=== PATIENT | female | born 1935 | race Caucasian/White ===

== ENCOUNTER → 2018-02-14 | Outpatient (CLI) | payer OTHER ==
[~2018-02-14] MED LIST: ACET325 PO; ALBU90OI INH; ALBU90OI61; ASPI325 PO; ATEN50 PO; ATOR10; ATOR20 PO; Adult Low Dose81 MG PO; CEPH500 PO; CHOL10002 PO; CLOP75; CYAN1000I PO; Citalopram HBr10 MG PO; DIVA125 PO; DOCU100 PO; GAVILAX17 GM PO; GLIP10 PO; LISI5; LORA1 PO; LOSARTAN POTASS50 MG PO; LOSARTAN-HCTZ1 EACH PO; LOSHYD; LOSHYD PO; METO50 PO; METO50ER; NAPR375; NAPR375 PO; PIOG15 PO; Poly-Iron150 MG PO; QUET100 PO; QUETIAPINE FUM150 MG PO; RXHYDACE PO
[2018-02-14 12:09] LABS: Bilirubin, Urine Neg (Neg); Blood, Urine Neg (Neg); Glucose Qualitative, Urine Neg (Neg); Ketones, Urine Neg (Neg); Leukocyte Esterase, Urine 1+ (Neg); Nitrite, Urine Neg (Neg); Protein, Urine Neg (Neg); Specific Gravity, Urine 1.005 (1.003-1.022); Urobilinogen, Urine NORM (Normal)
[2018-02-14 12:24] LABS: Appearance, Urine Clear (Clear); Color, Urine Yellow (P-Yellow)
[2018-02-14 12:28] LABS: Bacteria Rare /hpf; Red Blood Cells, Urine Rare /hpf (0-2)
[2018-02-14 12:29] LABS: Squamous Epithelial Cells Few /hpf (Few); White Blood Cells, Urine 0-2 /hpf (0-5)
== END | disposition home or self-care (01) ==
LOC: LAB SHORT 11:55 → LAB 11:55
DX: N39.0 Urinary tract infection, site not specified (principal)
CPT/HCPCS: 81001; 87086

== ENCOUNTER → 2018-03-05 | Outpatient (CLI) | payer OTHER ==
[2018-03-06 15:31] LABS: Bilirubin, Urine Neg (Neg); Blood, Urine 1+ (Neg); Color, Urine Yellow (P-Yellow); Glucose Qualitative, Urine Neg (Neg); Ketones, Urine Neg (Neg); Leukocyte Esterase, Urine 3+ (Neg); Nitrite, Urine Neg (Neg); Protein, Urine Neg (Neg); Specific Gravity, Urine 1.015 (1.003-1.022); Urobilinogen, Urine NORM (Normal); pH, Urine 6.5 (5.0-8.0)
[2018-03-06 15:50] LABS: Appearance, Urine Hazy (Clear)
[2018-03-06 15:58] LABS: Bacteria Many /hpf; Squamous Epithelial Cells Mod /hpf (Few)
== END | disposition home or self-care (01) ==
LOC: LAB 14:11 → LAB SHORT 14:11
DX: N39.0 Urinary tract infection, site not specified (principal)
CPT/HCPCS: 81001; 87086

== ENCOUNTER 2018-03-14 08:25 | Emergency (ER) | payer OTHER ==
[~2018-03-14] VITALS: Ht 165.1 cm; Wt 68.0 kg
[2018-03-14 10:24] LABS: BASOPHILS ABSOLUTE AUTO 0.05 K/mm3 (0.00-0.23); BASOPHILS PERCENT AUTO 1 % (0-2); EOSINOPHILS ABSOLUTE AUTO 0.16 K/mm3 (0.00-0.68); EOSINOPHILS PERCENT AUTO 2 % (0-6); Hematocrit 37.6 % (33.0-51.0); Hemoglobin 11.9 g/dL (11.5-16.0); IMMATURE GRAN ABSOLUTE AUTO 0.04 K/mm3 (0.00-0.10); IMMATURE GRAN PERCENT AUTO 0 % (0-1); LYMPHOCYTES ABSOLUTE AUTO 1.45 K/mm3 (0.84-5.20); LYMPHOCYTES PERCENT AUTO 15 % (21-46); MONOCYTES ABSOLUTE AUTO 0.52 K/mm3 (0.16-1.47); MONOCYTES PERCENT AUTO 5 % (4-13); Mean Corpuscular HGB 30.6 pg (26.0-34.0); Mean Corpuscular HGB Conc 31.6 g/dL (31.5-36.5); Mean Corpuscular Volume 97 fL (80-100); Mean Platelet Volume 10.2 fL (9.1-12.4); NEUTROPHILS ABSOLUTE AUTO 7.46 K/mm3 (1.96-9.15); NEUTROPHILS PERCENT AUTO 77 % (41-73); Platelet Count 167 K/mm3 (150-400); RDW Coefficient Variation 11.9 % (11.7-14.2); RDW Standard Deviation 41.5 fL (35.1-46.3); Red Blood Cell Count 3.89 M/mm3 (3.80-5.20); White Blood Cell Count 9.68 K/mm3 (4.00-11.30)
[2018-03-14 10:56] LABS: Albumin, Blood 3.4 g/dL (3.4-5.0); Albumin/Globulin Ratio 0.9 (0.8-1.8); Bilirubin, Total 0.3 mg/dL (0.1-1.0); Bun/Creatinine Ratio 31.1 (12.0-20.0); Creatinine, Blood 1.06 mg/dL (0.40-1.00); Globulin, Blood 3.7 g/dL (2.2-4.0); Potassium, Blood 4.5 mmol/L (3.5-5.5); Total Protein, Blood 7.1 g/dL (6.4-8.2)
== END 2018-03-14 12:20 | disposition home or self-care (01) ==
LOC: ER 08:25
PROVIDERS: Emergency Medicine
DX: R56.9 Unspecified convulsions (principal); Z88.1 Allergy status to other antibiotic agents; Z88.5 Allergy status to narcotic agent; Z79.899 Other long term (current) drug therapy; Z79.82 Long term (current) use of aspirin; F03.90 Unspecified dementia, unspecified severity, without behavioral disturbance, psychotic disturbance, mood disturbance, and anxiety; Z86.73 Personal history of transient ischemic attack (TIA), and cerebral infarction without residual deficits; Z87.891 Personal history of nicotine dependence
CPT/HCPCS: 36415; 70450; 71046; 80053; 85025; 93005; 93010; 96360; 96361; 99285-25; J7120

== ENCOUNTER 2018-07-11 16:48 | Inpatient (IN) | payer OTHER ==
[~2018-07-11] VITALS: Ht 160 cm; Wt 56.7 kg
[~2018-07-11 16:48] MED LIST changes: -Adult Low Dose81 MG PO; +BAYER CHEWABLE81 MG PO; -QUET100 PO; +QUET25 PO; +QUETIAPINE FUM100 MG PO; -QUETIAPINE FUM150 MG PO
[2018-07-11 17:37] LABS: Hematocrit 31.3 % (33.0-51.0); Hemoglobin 10.1 g/dL (11.5-16.0); LYMPHOCYTES ABSOLUTE AUTO 1.02 K/mm3 (0.84-5.20); LYMPHOCYTES PERCENT AUTO 8 % (21-46); MONOCYTES ABSOLUTE AUTO 1.23 K/mm3 (0.16-1.47); MONOCYTES PERCENT AUTO 10 % (4-13); Mean Corpuscular HGB 30.1 pg (26.0-34.0); Mean Corpuscular HGB Conc 32.3 g/dL (31.5-36.5); Mean Corpuscular Volume 93 fL (80-100); Mean Platelet Volume 10.8 fL (9.1-12.4); Platelet Count 205 K/mm3 (150-400); RDW Coefficient Variation 12.6 % (11.7-14.2); RDW Standard Deviation 43.2 fL (35.1-46.3); Red Blood Cell Count 3.35 M/mm3 (3.80-5.20); White Blood Cell Count 12.26 K/mm3 (4.00-11.30)
[2018-07-11 17:38] LABS: BASOPHILS ABSOLUTE AUTO 0.02 K/mm3 (0.00-0.23); BASOPHILS PERCENT AUTO 0 % (0-2); EOSINOPHILS ABSOLUTE AUTO 0.01 K/mm3 (0.00-0.68); EOSINOPHILS PERCENT AUTO 0 % (0-6); IMMATURE GRAN ABSOLUTE AUTO 0.19 K/mm3 (0.00-0.10); IMMATURE GRAN PERCENT AUTO 2 % (0-1); NEUTROPHILS ABSOLUTE AUTO 9.79 K/mm3 (1.96-9.15); NEUTROPHILS PERCENT AUTO 80 % (41-73)
[2018-07-11 18:06] LABS: Albumin, Blood 2.7 g/dL (3.4-5.0); Albumin/Globulin Ratio 0.5 (0.8-1.8); Bilirubin, Total 0.4 mg/dL (0.1-1.0); Bun/Creatinine Ratio 38.5 (12.0-20.0); Calcium, Blood 9.2 mg/dL (8.5-10.1); Creatinine, Blood 1.48 mg/dL (0.40-1.00); Globulin, Blood 5.1 g/dL (2.2-4.0); Potassium, Blood 3.9 mmol/L (3.5-5.5); Total Protein, Blood 7.8 g/dL (6.4-8.2)
[2018-07-11 19:55] LABS: Valproic Acid 28.2 ug/mL (50.0-100.0)
[2018-07-11 23:13] LABS: Source, Urine Catheter
[2018-07-11 23:17] LABS: Bilirubin, Urine Neg (Neg); Blood, Urine 1+ (Neg); Glucose Qualitative, Urine Neg (Neg); Ketones, Urine Neg (Neg); Leukocyte Esterase, Urine Neg (Neg); Nitrite, Urine Neg (Neg); Protein, Urine 2+ (Neg); Urobilinogen, Urine NORM (Normal)
[2018-07-11 23:26] LABS: Amorphous Heavy (0-Heavy); Appearance, Urine Cloudy (Clear); Bacteria Few /hpf; Color, Urine Yellow (P-Yellow); Red Blood Cells, Urine Not Seen /hpf (0-2); Squamous Epithelial Cells Rare /hpf (Few); White Blood Cells, Urine Rare /hpf (0-5)
[2018-07-12] MEDS ORDERED: Tussin Dm Clea118 ML PO (00:32)
[2018-07-12] MEDS ORDERED: LORA.5 PO (00:38)
[2018-07-12 01:23] LABS: Adenovirus Not Detected (NOT DETECT); Bordetella pertussis Not Detected (NOT DETECT); Chlamydophila pneumoniae Not Detected (NOT DETECT); Coronavirus 229E Not Detected (NOT DETECT); Coronavirus HKU1 Not Detected (NOT DETECT); Coronavirus NL63 Not Detected (NOT DETECT); Coronavirus OC43 Not Detected (NOT DETECT); Human Metapneumovirus Not Detected (NOT DETECT); Human Rhinovirus/Enterovirus Not Detected (NOT DETECT); Influenza A Not Detected (NOT DETECT); Influenza A/2009-H1 Not Detected (NOT DETECT); Influenza A/H1 Not Detected (NOT DETECT); Influenza A/H3 Not Detected (NOT DETECT); Influenza B Not Detected (NOT DETECT); Mycoplasma pneumoniae Not Detected (NOT DETECT); Parainfluenza Virus 1 Not Detected (NOT DETECT); Parainfluenza Virus 2 Not Detected (NOT DETECT); Parainfluenza Virus 3 Not Detected (NOT DETECT); Parainfluenza Virus 4 Not Detected (NOT DETECT); Respiratory Syncytial Virus Not Detected (NOT DETECT)
[2018-07-12 05:27] LABS: Hematocrit 28.5 % (33.0-51.0); Hemoglobin 8.9 g/dL (11.5-16.0); Mean Corpuscular HGB 29.8 pg (26.0-34.0); Mean Corpuscular HGB Conc 31.2 g/dL (31.5-36.5); Mean Corpuscular Volume 95 fL (80-100); Mean Platelet Volume 10.7 fL (9.1-12.4); Platelet Count 182 K/mm3 (150-400); RDW Coefficient Variation 12.7 % (11.7-14.2); RDW Standard Deviation 44.5 fL (35.1-46.3); Red Blood Cell Count 2.99 M/mm3 (3.80-5.20); White Blood Cell Count 11.44 K/mm3 (4.00-11.30)
[2018-07-12 05:54] LABS: Bun/Creatinine Ratio 38.4 (12.0-20.0); Calcium, Blood 8.8 mg/dL (8.5-10.1); Creatinine, Blood 1.25 mg/dL (0.40-1.00); Potassium, Blood 3.5 mmol/L (3.5-5.5)
--- NOTE | 2018-07-12 06:16 | NUR ---
SHIFT SUMMARY PT ARRIVED APPROX 2129 OR SO TO ROOM. NEEDING 3L O2 NC TO STAY AT LEAST 92% MOUTH BREATHING AND DESATS C SLEEPING. WAS NOT ABLE TO SWALLOW PILLS OR FOLLOW COMMANDS TO SWALLOW. TYLENOL SUPP FOR TEMP OF 100.4 CAME DOWN TO 98.5. VERY CONGESTED SOUNDING COUGH OCCASIONALLY. INCONT OF URINE AND BOWEL. SHE WAS ABLE TO SLEEP THROUGH THE NIGHT. BED ALARM IN USE.
--- NOTE | 2018-07-12 09:51 | NUR ---
CALLED HOSPITALIST INFORMED HER THAT PT WAS NOT SWALLOWING. I WAS INFORMED THE NIGHT NURSE HAD TO DIG OUT MEDS THAT WERE MIXED IN APPLESAUCE DUE TO THE PT POCKETING. HOSPITALIST STATED THAT SHE WOULD REVIEW THE CHART. APPROVED ME TO HOLD ORAL MEDS UNTIL NEW ORDERS ENTERED. AWAITING FURTHER ORDERS.
--- NOTE | 2018-07-12 15:45 | NUR ---
Met with Sherine in her room. She is awake and smiles at me when I enter the room. She speaks with word salad and doesn't appear to be in any discomfort at this time. Spoke with staff at [facility], pt is normally wheel chair bound, can pivot transfer with assist, incontinent, able to feed self some of the time. She is on a pureed diet and takes her meds crushed in protein shakes. Staff at [facility] state her usual state of health declined significantly over the past 4-5 days. Spoke with Rochelle Burrows and pt's dtr Liliam, in [place]. Liliam is open to having hospice follow Sherine when she returns to [facility]. Liliam would like Sherine to have treatment during this hospitalization for her infection and then go home with hospice services. Liliam states that Sherine was on hospice services in the past and would like to use the same company as last time. LM for Rochelle Burrows that pt is to have a hospice referral to the hospice that followed her previously. Dr. Arriaga, CM, and bedside nursing aware of plan. PC will continue to follow.
--- NOTE | 2018-07-12 17:36 | NUR ---
SHIFT SUMMARY 82 YR OLD FEMALE ADMITTED FOR SEPSIS/PNEUMONIA. DNR. FROM [facility]. HX: DM2, COPD, CABG, VALVE REPLACEMENT, LUNG MASS. INCONTINENT, USES WHEELCHAIR AT BASELINE. O2 ADMIN 3 LPM IN MOUTH SHE IS A MOUTH BREATHER. DOES NOT USE O2 AT HOME. NONVERBAL FOR THE MOST PART, OCCASIONAL WORDS. NON-PRODUCTIVE COUGH. GLUCOSE CHEMSTICKS BEFORE MEALS. , SOFT PUREE DIET, ASPIRATION PRECAUTIONS. NO STRAWS. PILLS CRUSHED IN APPLESAUCE. FAMILY DECIDED TO CONTINUE IV ANTIBIOTICS WHILE IN HOSPITAL, DC ON HOSPICE IS POSSIBLE. DEXTROSE 5% IS RUNNING VIA IV 75 ML/HR.
--- NOTE | 2018-07-12 18:33 | NUR ---
CALLED HOSPITALIST LEFT MESSAGE. PT VIEWS SCORE OF 4 DUE TO FAST HR (158 BPM). PT'S ATENELOL HELD THIS MORNING DUE TO ASPIRATION CONCERNS. AWAITING ORDERS
--- NOTE | 2018-07-12 18:42 | NUR ---
NOTIFIED CHARGE CHARGE INSTRUCTED ME TO GIVE THE ORAL ATENELOL IF POSSIBLE - STAT
[2018-07-13 05:04] LABS: BASOPHILS ABSOLUTE AUTO 0.09 K/mm3 (0.00-0.23); BASOPHILS PERCENT AUTO 1 % (0-2); EOSINOPHILS ABSOLUTE AUTO 0.28 K/mm3 (0.00-0.68); EOSINOPHILS PERCENT AUTO 2 % (0-6); Hemoglobin 9.5 g/dL (11.5-16.0); IMMATURE GRAN ABSOLUTE AUTO 0.35 K/mm3 (0.00-0.10); IMMATURE GRAN PERCENT AUTO 3 % (0-1); LYMPHOCYTES ABSOLUTE AUTO 1.46 K/mm3 (0.84-5.20); LYMPHOCYTES PERCENT AUTO 11 % (21-46); MONOCYTES PERCENT AUTO 6 % (4-13); Mean Corpuscular HGB Conc 31.7 g/dL (31.5-36.5); Mean Corpuscular Volume 95 fL (80-100); Mean Platelet Volume 10.6 fL (9.1-12.4); NEUTROPHILS ABSOLUTE AUTO 10.89 K/mm3 (1.96-9.15); NEUTROPHILS PERCENT AUTO 78 % (41-73); Platelet Count 219 K/mm3 (150-400); RDW Coefficient Variation 12.9 % (11.7-14.2); RDW Standard Deviation 44.9 fL (35.1-46.3); Red Blood Cell Count 3.17 M/mm3 (3.80-5.20); White Blood Cell Count 13.97 K/mm3 (4.00-11.30)
[2018-07-13 05:29] LABS: Albumin, Blood 2.3 g/dL (3.4-5.0); Anion Gap 6 mmol/L (6-16); Blood Urea Nitrogen 30 mg/dL (8-24); Bun/Creatinine Ratio 33.2 (12.0-20.0); CO2, Blood 28 mmol/L (21-32); Calcium, Blood 9.1 mg/dL (8.5-10.1); Chloride, Blood 110 mmol/L (98-108); Glomerular Filtration Rate >60 (60-); Glucose, Blood 139 mg/dL (70-99); Phosphorus, Blood 2.4 mg/dL (2.5-4.9); Potassium, Blood 3.5 mmol/L (3.5-5.5); Sodium, Blood 144 mmol/L (136-145)
--- NOTE | 2018-07-13 06:35 | NUR ---
SHIFT SUMMARY PT MORE ALERT AND INTERACTING THAN PERVIOUSLY. SHE WAS NOT ABLE OR WILLING TO SWALLOW CRUSHED UP PILLS. THEY JUST SAT IN HER MOUTH AND SHE DID NOT DO ANY OF THE SWALLOWING MOTIONS SO HAD TO TAKE CRUSHED UP PILLS BACK OUT OF MOUTH AND SUCTION REMAINS OUT. STILL HAVING VERY CONGESTED SOUNDING COUGH OCCASIONALLY. O2 LITER REQUIREMENT DOWN FROM 3L TO 1.5L O2. TYLENOL SUPP FOR TEMP OF 100.3 CAME DOWN TO 97.8. TELE SHOWED A FIB IN 120'S PER DIALYSIS SOCIAL WORKER THAN WENT DOWN TO 90'S THEN BACK UP TO 120'S-130'S. DR GAMBLE ORDERED OT IV METOPROLOL. REPORT GIVEN TO DAY RN.
--- NOTE | 2018-07-13 07:09 | NUR ---
CALLED HOSPITALIST INFORMED BY PCU PC INSTALLATION ENGINEER THAT PT'S HR IS 130'S-140 BPM. CALLED HOSPITALIST AND LEFT MESSAGE. PT HAD RECEIVED A ONE TIME ONLY DOSE OF IV METOPROLOL @ 06:30 HRS. 30 MINUTES SINCE THAT DOSE HAS GONE BY. AWAITING ORDERS.
--- NOTE | 2018-07-13 15:45 | NUR ---
SHIFT SUMMARY 82 YR OLD FEMALE ADMITTED FOR SEPSIS/PNEUMONIA. DNR. FROM [facility]. HR THIS MORNING RANGED FROM 130'S TO 140 BPM. DOWN TO 115 W/ATENELOL ADMIN. PT PUT ON TELEMETRY LAST NIGHT TO DISCOVER NEW ONSET AFIB W/RVR. O2 ADMIN IS NOW 1.5 LPM, BUT PT DESATURATED TO 84% WHEN SHE REMOVED HER OWN O2. NON-PRODUCTIVE COUGH WAS WORSE THIS MORNING, IMPROVED THIS AFTERNOON. WHEELCHAIR AND ROOM AIR @ BASELINE. PT DID EAT MORE FOR BREAKFAST AND LUNCH TODAY. PT IS INCONTINENT. PUREE/ADA DIET. CHEMSTICKS BEFORE MEALS, LOW SLIDING SCALE. HX: COPD, CABG, LUNG MASS, VALVE REPLACEMENT, HTN, DM2.
--- NOTE | 2018-07-13 18:24 | NUR ---
CALLED HOSPITALIST PT HAS VIEWS SCORE OF 6 WITH HR IN THE 130'S TO 140'S AND A FAST RESPIRATORY RATE. RESPIRATORY TREATMENT ORDERED. PRN IV METOPROLOL ADMINISTERED, PRN TYLENOL SUPPOSITORY GIVEN. ONE TIME DOSE OF PO ATENOLOL 25 MG ADMINISTERED. PT MAY BE SUNDOWNING, SHE WAS NOT THIS AGITATED THROUGHOUT THE DAY. HOSPITALIST ALSO ORDERED THE PT'S EVENING DOSE OF SEROQUEL ADMINISTERED NOW.
[2018-07-14 05:37] LABS: BASOPHILS ABSOLUTE AUTO 0.09 K/mm3 (0.00-0.23); BASOPHILS PERCENT AUTO 1 % (0-2); EOSINOPHILS ABSOLUTE AUTO 0.21 K/mm3 (0.00-0.68); EOSINOPHILS PERCENT AUTO 2 % (0-6); Hematocrit 29.8 % (33.0-51.0); Hemoglobin 9.3 g/dL (11.5-16.0); IMMATURE GRAN ABSOLUTE AUTO 0.44 K/mm3 (0.00-0.10); IMMATURE GRAN PERCENT AUTO 4 % (0-1); LYMPHOCYTES ABSOLUTE AUTO 1.35 K/mm3 (0.84-5.20); LYMPHOCYTES PERCENT AUTO 12 % (21-46); MONOCYTES ABSOLUTE AUTO 0.67 K/mm3 (0.16-1.47); MONOCYTES PERCENT AUTO 6 % (4-13); Mean Corpuscular HGB 29.1 pg (26.0-34.0); Mean Corpuscular HGB Conc 31.2 g/dL (31.5-36.5); Mean Corpuscular Volume 93 fL (80-100); Mean Platelet Volume 10.5 fL (9.1-12.4); NEUTROPHILS ABSOLUTE AUTO 8.39 K/mm3 (1.96-9.15); NEUTROPHILS PERCENT AUTO 75 % (41-73); NRBC ABSOLUTE 0.02 K/mm3 (0.00-0.02); NRBC Auto 0.2 /100 WBC (0.0-0.2); Platelet Count 218 K/mm3 (150-400); RDW Coefficient Variation 13.1 % (11.7-14.2); RDW Standard Deviation 44.8 fL (35.1-46.3); White Blood Cell Count 11.15 K/mm3 (4.00-11.30)
[2018-07-14 05:56] LABS: Albumin, Blood 2.1 g/dL (3.4-5.0); Anion Gap 5 mmol/L (6-16); Blood Urea Nitrogen 25 mg/dL (8-24); Bun/Creatinine Ratio 29.3 (12.0-20.0); CO2, Blood 28 mmol/L (21-32); Calcium, Blood 8.7 mg/dL (8.5-10.1); Chloride, Blood 109 mmol/L (98-108); Creatinine, Blood 0.85 mg/dL (0.40-1.00); Glomerular Filtration Rate >60 (60-); Glucose, Blood 184 mg/dL (70-99); Phosphorus, Blood 3.4 mg/dL (2.5-4.9); Sodium, Blood 142 mmol/L (136-145)
--- NOTE | 2018-07-14 06:13 | NUR ---
SHIFT SUMMARY PT IS AN 82 Y/O FEMALE, ADMITTED FOR SEPSIS. SHE IS A&O X 0, AND WILL OFTEN NOT RESPOND TO QUESTIONS OR COOPERATE WITH CARE. PT WAS LETHARGIC DURING THE NIGHT, AND WAS NOT AWARE ENOUGH TO TAKE HER PM MEDS. SHE SLEPT OFF AND ON THROUGH THE NIGHT, OCCASIONALLY MUMBLING OR COUGHING. PER THE TELE MONITOR, SHE IS STILL IN AFIB, WITH A VARIABLE RATE IN THE 100S THAT OCCASIONALLY SPIKED UP TO THE 120-140S. ALL OTHER VITALS STABLE. PT REMAINED ON 1.5L OF O2. NO S.S NOTED OF ACUTE PAIN, NAUSEA OR SOB. NO OTHER ACUTE CHANGES IN PT CONDITION NOTED. WILL CONTINUE TO MONITOR AND TREAT PER EMAR.
--- NOTE | 2018-07-14 15:58 | NUR ---
SHIFT SUMMARY NO ACUTE CHANGES. PATIENT DENIES PAIN, NAUSEA, AND SHORTNESS OF BREATH. PATIENT HAS TO BE REMINDED TO KEEP OXYGEN ON. PATIENT ALERT TO SELF AND MUMBLES MOST OF THE TIME BUT WILL OCCASSIONALLY ANSWER YES/NO QUESTIONS. CALL LIGHT IN REACH, WILL CONTINUE TO MONITOR.
[2018-07-15 04:41] LABS: Hematocrit 28.7 % (33.0-51.0); Hemoglobin 8.9 g/dL (11.5-16.0); Mean Corpuscular HGB 29.6 pg (26.0-34.0); Mean Corpuscular Volume 95 fL (80-100); Mean Platelet Volume 10.3 fL (9.1-12.4); NRBC ABSOLUTE 0.03 K/mm3 (0.00-0.02); NRBC Auto 0.3 /100 WBC (0.0-0.2); Platelet Count 230 K/mm3 (150-400); RDW Coefficient Variation 13.1 % (11.7-14.2); RDW Standard Deviation 46.2 fL (35.1-46.3); Red Blood Cell Count 3.01 M/mm3 (3.80-5.20); White Blood Cell Count 10.44 K/mm3 (4.00-11.30)
[2018-07-15 05:07] LABS: Magnesium, Blood 1.9 mg/dL (1.6-2.4)
[2018-07-15 05:08] LABS: Albumin, Blood 2.1 g/dL (3.4-5.0); Anion Gap 7 mmol/L (6-16); Blood Urea Nitrogen 21 mg/dL (8-24); Bun/Creatinine Ratio 23.8 (12.0-20.0); CO2, Blood 27 mmol/L (21-32); Calcium, Blood 8.8 mg/dL (8.5-10.1); Chloride, Blood 113 mmol/L (98-108); Creatinine, Blood 0.88 mg/dL (0.40-1.00); Glomerular Filtration Rate >60 (60-); Glucose, Blood 156 mg/dL (70-99); Phosphorus, Blood 2.7 mg/dL (2.5-4.9); Sodium, Blood 147 mmol/L (136-145)
[2018-07-15 05:16] LABS: Digoxin (Lanoxin) 1.54 ug/mL (0.80-2.00)
--- NOTE | 2018-07-15 05:27 | NUR ---
SHIFT SUMMARY PT IS AN 82 Y/O FEMALE, ADMITTED FOR SEPSIS. SHE IS A&O X SELF ONLY, WITH GARBLED SPEECH. PT SLEPT WELL THROUGH THE FIRST HALF OF THE NIGHT, BUT WOKE IN THE AM WITH COMPLAINTS OF SOB AND WHEEZING. THE PT ALSO HAD SOME CRACKLES IN THE LOWER BASES THAT WERE NOT NOTED AT THE BEGINNING OF SHIFT. THE PT RECEIVED ONE BAG OF NS DURING THE NIGHT. SHE DENIED ANY COMPLAINTS OF PAIN OR NAUSEA. PER THE TELE MONITOR, THE PT REMAINED IN AFIB DURING THE NIGHT, THOUGH RATE CONTROLLED BETWEEN 70-90S WITH OCCASIONAL SPIKES INTO THE 110S. ALL OTHER VITALS STABLE. NO OTHER ACUTE CHANGES IN PT CONDITION NOTED. WILL CONTINUE TO MONITOR AND TREAT PER EMAR.
--- NOTE | 2018-07-15 15:01 | NUR ---
COMFORT CARE PATIENT TRANSITIONED TO COMFORT CARE. PATIENT WILL BE DISCHARGING HOME TO [facility] ON HOSPICE. PATIENT SLEEPING QUIETLY WITH NO SIGNS OF DISTRESS OR DISCOMFORT. CALL LIGHT IN REACH, WILL CONTINUE TO MONITOR.
--- NOTE | 2018-07-15 17:07 | NUR ---
1600 NOTE RECEIVED FROM RM 345 INTO RM 313. O2 CANNULA IN HER MOUTH. MOUTH WIDE OPEN. EYES CLOSED. NO RESPONSE TO CALLING HER NAME. RESPIRATIONS REGULAR. O2 ON 1 1/2L.
--- NOTE | 2018-07-15 18:05 | NUR ---
TURNED TO HER R SIDE. SHE APPEARS TO BE LOOKING OUT THE WINDOW. TYLENOL SUPPOSITORY GIVEN FOR COUGH AND MILD RESTLESSNESS. ATTENDS CHANGED FOR MODERATE AMT OF URINE. SHE PASSED GAS. O2 CANNULA STILL IN HER MOUTH. SHE HAS NOT SPOKEN. NO VISITORS. BED ALARM ON. NO ORAL INTAKE AT DINNER TIME.
--- NOTE | 2018-07-16 05:48 | NUR ---
SHIFT SUMMARY: 82 Y/O FEMALE RESTED COMFORTABLY ALL SHIFT. PT MUMBLING TO SELF INCOHERENTLY AT TIMES WITH NO ORGANIZED THOUGHT PROCESS. PT REQUIRES ASSISTANCE WITH ALL ADLS TO INCLUDE TURNING BY STAFF EVERY TWO HOURS. PT INCONTINENT BOWEL AND BLADDER. PT SCHEDULED FOR TENTATIVE DISCHARGE BACK TO [facility] IN [place] WITH HOSPICE TODAY. PTS APPEARS TO HAVE NO PAIN OR NAUSEA, WEARING O2 AT 2L/M PER NASAL CANNULA. PTS BED ALARM APPLIED, BED LOW POSITION, CALL LIGHT AT SIDE.
--- NOTE | 2018-07-16 16:23 | NUR ---
patient has no iv assess. does not take p.o. meds. appears to "pocket" meds. per pharm ok to try ativan pr.given. roxinal changed to q 1 hour prn. hina elias discussed giving ativan pr w/pharm
--- NOTE | 2018-07-16 16:24 | NUR ---
Visited with Sehrine this afternoon. She yells out and has an audible wheeze. Her sats are 82% on RA, nsg reports she will not leave her O2 on. Roxinol was given at 1530 today. Nsg reports sometimes she will spit out some of her medications. She has no IV site. CM reports pt will be dc'd to [facility] with hospice services tomorrow. Spoke with Lien, pharmacist. She states that we could try to give PO ativan rectally, there is no contraincication to this, however absorption may vary. Called Dr. Guzmán to let him know nsg will try PO ativan rectally. Also increased the dose and frequency of SL roxinol per MD order. Pt is very aggitated with attends change and turning. Emotional support given. Nsg gave tylenol suppository for comfort. Will monitor.
--- NOTE | 2018-07-16 17:09 | NUR ---
Mrs. Tabor is non-verbal and moaning when I enter room. I informed RN who immediately provided prescribed meds for pain. No family present. Prayer for a peaceful transition provided at bedside. I will remain available.
--- NOTE | 2018-07-17 00:53 | NUR ---
0041 PT INCREASINGLY CRYING OUT IN ROOM, PT MUMBLING INCOHERENT WORDS TO STAFF. PT GIVEN ROXICODONE 20MG, SL.
--- NOTE | 2018-07-17 01:15 | NUR ---
0114 PT NO LONGER CRYING AND MOANING, RESTING COMFORTABLY IN SEMI FOWLERS POSITION. BED ALARM APPLIED.
--- NOTE | 2018-07-17 06:36 | NUR ---
SHIFT SUMMARY: 82 Y/O FEMALE RESTED IN BED ALL NIGHT AFTER RECEIVING ONE DOSAGE OF ROXICODONE 20MG. PT ALERT TO PERSON ONLY AND REFUSED TO TAKE ANY ORAL FLUIDS OFFERED BY STAFF. PT APPEARS TO HAVE NO PAIN OR NAUSEA. PTS BED ALARM APPLIED, BED LOW POSITION, CALL LIGHT AT SIDE. PT IS TENTATIVELY SCHEDULED TO BE DISCHARGED [facility]OSP[facility] IN [place] TODAY.
[2018-07-17] MEDS ORDERED: OXYCODONE10 MG/0.5 SL (10:13)
[2018-07-17] MEDS ORDERED: PROM12.5S PR (10:13)
[2018-07-17] MEDS ORDERED: Transderm-Scop1 EACH TOP (10:14)
--- NOTE | 2018-07-17 10:39 | NUR ---
Clinical Visit: Pt is active, pulling up her blankets to her head and moaning. She is expresses fear when I walk toward her. Pt just received 20 mg roxanol 25 min ago. It appears that she may need some ativan or haldol - she is extremely anxious and may be experiencing hallucinations as she is expressing fear. Pt usually takes seroquel. Likely held due to pt's inability to swallow at this point. It acually appears that she has mouth sores on the roof of her mouth. Will conference with nurse. Pt has been medicated. She may need additional medications to get her comfortable. She is discharging today to hospice. Will remain available.
--- NOTE | 2018-07-17 13:10 | NUR ---
IN [facility] ON HOSPICE.
--- NOTE | 2018-07-17 14:54 | NUR ---
Sharon appeared comfortable when I entered room. She began to moan, however, and RN responded immediately. No family present. Sharon is being discharged soon. Prayer for peaceful transition provided.
== END 2018-07-17 13:04 | disposition hospice, inpatient (51) | DRG 871 ==
LOC: ER 16:48 → MEDS 19:27 → ENPENDDIS 07-17 09:26 → MEDS 07-17 13:04
PROVIDERS: Emergency Medicine; Internal Medicine; Nurse Practitioner Acute Care; ADMIT Hospitalist
DX: A41.9 Sepsis, unspecified organism (principal); J18.9 Pneumonia, unspecified organism; J69.0 Pneumonitis due to inhalation of food and vomit; N17.9 Acute kidney failure, unspecified; G93.40 Encephalopathy, unspecified; C34.2 Malignant neoplasm of middle lobe, bronchus or lung; G30.1 Alzheimer's disease with late onset; F02.80 Dementia in other diseases classified elsewhere, unspecified severity, without behavioral disturbance, psychotic disturbance, mood disturbance, and anxiety; J44.9 Chronic obstructive pulmonary disease, unspecified; I25.10 Atherosclerotic heart disease of native coronary artery without angina pectoris; Z95.1 Presence of aortocoronary bypass graft; F32.9 Major depressive disorder, single episode, unspecified; E83.39 Other disorders of phosphorus metabolism; I12.9 Hypertensive chronic kidney disease with stage 1 through stage 4 chronic kidney disease, or unspecified chronic kidney disease; E11.22 Type 2 diabetes mellitus with diabetic chronic kidney disease; N18.3 Chronic kidney disease, stage 3 (moderate); I48.2 Chronic atrial fibrillation
CPT/HCPCS: 36415; 36416; 71046; 80048; 80053; 80069; 80162; 80164; 81001; 82947; 83605; 83735; 83880; 84145; 85025; 85027; 87040; 87486; 87581; 87633; 87798; 92610; 93005; 93010; 94640; 94760; 96365; 96366; 96375; 99285-25; J0456; J0696; J1160; J1650; J7030; J7050; J7060; J7070